=== PATIENT | male | born 1980 | race African-American/Black ===

== ENCOUNTER 2020-07-05 17:30 | Emergency (ER) | payer BC ==
[~2020-07-05] VITALS: Ht 172.7 cm; Wt 100.0 kg
[2020-07-05 17:45] VITALS: BP 127/83
--- NOTE | 2020-07-05 18:09 | PHYS DOC ---
Past History Past Medical History: No Pertinent History Past Surgical History: No Surgical History Alcohol Use: None General Adult EDM: Chief Complaint: HAND PROBLEM HPI: HPI: Patient is a 40-year-old male coming in for right hand pain and swelling, earlier punched a wall in his house because he was upset. No other injuries. States his tetanus is current within the last 5 years. Able to move hand denies paresthesias. Patient is right-handed. Review of Systems: Review of Systems: Constitutional: Denies fever or chills Eyes: Denies change in visual acuity HENT: Denies nasal congestion or sore throat Respiratory: Denies cough or shortness of breath Cardiovascular: Denies chest pain or edema GI: Denies abdominal pain, nausea, vomiting, bloody stools or diarrhea : Denies dysuria Musculoskeletal: Denies back pain or joint pain, right hand pain and swelling Integument: Denies rash, superficial abrasions over fourth and fifth knuckles Neurologic: Denies headache, focal weakness or sensory changes Endocrine: Denies polyuria or polydipsia Lymphatic: Denies swollen glands Psychiatric: Denies depression or anxiety Physical Exam: PE: Constitutional: Well developed, well nourished, no acute distress, non-toxic appearance. [] HENT: Normocephalic, atraumatic, bilateral external ears normal, oropharynx moist, no oral exudates, nose normal. [] Eyes: PERRLA, EOMI, conjunctiva normal, no discharge. [] Neck: Normal range of motion, no tenderness, supple, no stridor. [] Cardiovascular:Heart rate regular rhythm, no murmur [] Lungs & Thorax: Bilateral breath sounds clear to auscultation [] Abdomen: Bowel sounds normal, soft, no tenderness, no masses, no pulsatile masses. [] Skin: Warm, dry, no erythema, no rash. [] Superficial abrasions over 4-5 knuckles, no evidence of intrusion into joint space. Back: No tenderness, no CVA tenderness. [] Extremities: No tenderness, no cyanosis, no clubbing, ROM intact, mild edema over third through fifth knuckles and dorsal hand on right Neurologic: Alert and oriented X 3, normal motor function, normal sensory function, no focal deficits noted. [] Psychologic: Affect normal, judgement normal, mood normal. [] Current Patient Data: Vital Signs: Vital Signs Date Time Temp Pulse Resp B/P (MAP) Pulse Ox O2 Delivery O2 Flow Rate FiO2 07/05/20 17:45 98.4 76 16 127/83 (98) 98 Room Air EKG: EKG: [] Radiology/Procedures: Radiology/Procedures: Three-view right hand AP lateral oblique views HISTORY: Pain and swelling AP lateral oblique views Visualized osseous structures appear normal. IMPRESSION: No acute findings. [] Heart Score: Risk Factors: Risk Factors: DM, Current or recent (<one month) smoker, HTN, HLP, family history of CAD, obesity. Risk Scores: Score 0 - 3: 2.5% MACE over next 6 weeks - Discharge Home Score 4 - 6: 20.3% MACE over next 6 weeks - Admit for Clinical Observation Score 7 - 10: 72.7% MACE over next 6 weeks - Early Invasive Strategies Course & Med Decision Making: Course & Med Decision Making Left AMA from the emergency department prior to x-ray read, stating he did not have time to sign AMAvpapers. Patient stated he had been here for an hour and in 1 week anymore. [] Dragon Disclaimer: Dragon Disclaimer: This electronic medical record was generated, in whole or in part, using a voice recognition dictation system. Departure Departure: Impression: Primary Impression: Contusion of right hand, initial encounter Disposition: 07 AMA/ELOPED/LWBS Condition: STABLE Referrals: PCP,NO (PCP) Scripts No Active Prescriptions or Reported Meds KESHIA IBARRA MD Jul 05, 2020 18:09
--- NOTE | 2020-07-05 19:01 | RAD ---
Three-view right hand AP lateral oblique views HISTORY: Pain and swelling AP lateral oblique views Visualized osseous structures appear normal. IMPRESSION: No acute findings. Electronically signed by: Rafal Russ III, MD (07/05/2020 6:58 PM) [facility]
== END 2020-07-05 18:25 | disposition left against medical advice (07) ==
LOC: ER 17:30
DX: S60.221A Contusion of right hand, initial encounter (principal); W22.01XA Walked into wall, initial encounter; Y93.89 Activity, other specified; Y92.89 Other specified places as the place of occurrence of the external cause; Y99.8 Other external cause status
CPT/HCPCS: 73130; 99283

== ENCOUNTER 2021-07-15 05:51 | Emergency (ER) | payer BC, OTHER ==
[~2021-07-15] VITALS: Ht 172.7 cm; Wt 95.7 kg
--- NOTE | 2021-07-15 06:05 | PHYS DOC ---
Past History Past Medical History: No Pertinent History Past Surgical History: No Surgical History Alcohol Use: None Adult General Chief Complaint Chief Complaint: DYSPNEA/RESPIRATOY DISTRESS [facility] HPI Patient is a 41-year-old male presenting via POV for cough. Reports he has healthy and has been at baseline health but reports generalized sore throat and URI symptoms that developed 8 days ago. He was seen by his primary care physician 6 days ago where he was tested for strep and Covid for which she was positive for both. He was started on amoxicillin with supportive care instructions advised. The next day, he went to local health department to confirm he was Covid positive, he had repeat Covid test which was indeed positive with continued supportive care practices advised. Nonetheless, patient has been trying to take home Tylenol, Excedrin and elderberry without any improvement in symptoms. He has had poor p.o. intake due to ongoing fatigue. Generalized malaise and ongoing symptoms prompted him to come in for evaluation. Is otherwise healthy with no medical issues, takes no medications on a daily ba sis. No tobacco alcohol or drug use. He is not vaccinated against COVID-19 Review of Systems Review of Systems Fourteen body systems of review of systems have been reviewed. See HPI for pertinent positives and negative responses, other bright all other systems are negative, non-pertinent or non-contributory Allergies Allergies Allergies Coded Allergies Type Severity Reaction Last Updated Verified No Known Drug Allergies 07/05/20 No Physical Exam Physical Exam Constitutional: Well developed, well nourished, appears poorly but is in no acute distress, non-toxic appearance. HENT: Normocephalic, atraumatic, bilateral external ears normal, oropharynx dry with erythematous posterior oropharynx, no oral exudates, nose normal. Eyes: PERRLA, EOMI, conjunctiva normal, no discharge. Neck: Normal range of motion, no tenderness, supple, no stridor. Cardiovascular: Heart rate regular, sinus rhythm, no murmurs rubs or gallops Lungs & Thorax: Bilateral breath sounds clear to auscultation Abdomen: Bowel sounds normal, soft, no tenderness, no masses, no pulsatile masses. Nonsurgical abdomen, no peritoneal signs Skin: Warm, dry, no erythema, no rash. Back: No tenderness, no CVA tenderness. Extremities: No tenderness, no cyanosis, no clubbing, ROM intact, no edema. Neurologic: Alert and oriented X 3, grossly normal motor & sensory function, no focal deficits noted. Psychologic: Affect normal, judgement normal, mood normal. Current Patient Data Vital Signs Vital Signs Date Time Temp Pulse Resp B/P (MAP) Pulse Ox O2 Delivery O2 Flow Rate FiO2 07/15/21 06:00 98.9 107 22 129/75 (93) 95 Room Air Vital Signs Date Time Temp Pulse Resp B/P (MAP) Pulse Ox O2 Delivery O2 Flow Rate FiO2 07/15/21 06:00 98.9 107 22 129/75 (93) 95 Room Air Lab Results Laboratory Tests Test 07/15/21 06:20 White Blood Count 3.9 x10^3/uL Red Blood Count 5.39 x10^6/uL Hemoglobin 15.5 g/dL Hematocrit 45.3 % Mean Corpuscular Volume 84 fL Mean Corpuscular Hemoglobin 29 pg Mean Corpuscular Hemoglobin Concent 34 g/dL Red Cell Distribution Width 13.9 % Platelet Count 114 x10^3/uL Neutrophils (%) (Auto) 43 % Lymphocytes (%) (Auto) 51 % Monocytes (%) (Auto) 6 % Eosinophils (%) (Auto) 0 % Basophils (%) (Auto) 1 % Neutrophils # (Auto) 1.6 x10^3uL Lymphocytes # (Auto) 2.0 x10^3/uL Monocytes # (Auto) 0.2 x10^3/uL Eosinophils # (Auto) 0.0 x10^3/uL Basophils # (Auto) 0.0 x10^3/uL Sodium Level 138 mmol/L Potassium Level 3.8 mmol/L Chloride Level 102 mmol/L Carbon Dioxide Level 24 mmol/L Anion Gap 12 Blood Urea Nitrogen 11 mg/dL Creatinine 1.3 mg/dL Estimated GFR (Cockcroft-Gault) 74.4 Glucose Level 96 mg/dL Calcium Level 7.9 mg/dL Current Medications Medications (Trade) Dose Ordered Sig/Roderick Route PRN Reason Start Time Stop Time Status Last Admin Dose Admin Sodium Chloride 1,000 ml @ 1,000 mls/hr 1X ONCE IV 07/15/21 06:30 07/15/21 07:29 DC 07/15/21 06:30 EKG EKG [] Radiology/Procedures Radiology/Procedures EXAM: AP View of the chest DATE: 07/15/2021 6:18 AM INDICATION: Shortness of breath COMPARISON: No Prior FINDINGS: The heart is not enlarged. Mediastinal and hilar contours are normal. Patchy opacities medial right lung base likely atelectasis or developing consolidation. No pleural effusion or pneumothorax. IMPRESSION: Patchy opacities medial right lung base likely atelectasis or developing consolidation. Electronically signed by: Christian Sebastian MD (07/15/2021 7:51 AM) [id number] Heart Score C/O Chest Pain: No Risk Factors: Risk Factors: DM, Current or recent (<one month) smoker, HTN, HLP, family history of CAD, obesity. Risk Scores: Risk Factors: DM, Current or recent (<one month) smoker, HTN, HLP, family history of CAD, obesity. Course & Med Decision Making Course & Med Decision Making ABCs unremarkable HPI physical exam and comprehensive ER work-up nonconcerning for any emergent or surgical issues IV fluid rehydration administered. Patient already on antibiotics and advised to continue these. Joint decision made to start budesonide inhaler given patient is hemodynamically stable and nonhypoxic Patient to be discharged home with continued supportive care practices and close outpatient follow-up when safe to do so. Strict return precautions discussed and understood by patient. All questions and concerns addressed prior to ER departure Dragon Disclaimer Dragon Disclaimer This electronic medical record was generated, in whole or in part, using a voice recognition dictation system. Departure Departure: Impression: Primary Impression: COVID-19 Disposition: 01 HOME / SELF CARE / HOMELESS Condition: STABLE Referrals: ADI CORTEZ MD (PCP) Additional Instructions: As discussed prior to ER departure, your vitals, physical exam and comprehensive ER work-up were nonconcerning for any emergent or surgical issues. You are provided IV fluid rehydration as you have had decreased fluid intake due to acute infection with COVID-19. There is no indication for further diagnostic work-up, intervention or need for hospitalization at this time. Please continue providing supportive care practices to yourself at home with importance of sitting upright and practicing deep breathing exercises to ensure adequate oxygenation and ventilation to your lungs. Please keep close contact with your primary care physician during acute phase of illness to ensure continued resolution. If any concerning signs or symptoms present prior to safe outpatient follow-up please do not hesitate to come back for repeat evaluation. It was a pleasure to take care of you and I wish you the best going forward Scripts Budesonide (PULMICORT FLEXHALER) 180 Mcg [email or web address] 2 PUFF IH BID for shob, #1 INHALER 6 Refills Prov: ESTIVEN DIAZ DO 07/15/21 ESTIVEN DIAZ DO Jul 15, 2021 06:05
[2021-07-15] MEDS ORDERED: IV NORMAL SALINE 1,000ML 1,000 ML IV ONE (06:30)
[2021-07-15] MEDS ORDERED: AMOXICILL (06:32)
[2021-07-15 06:37] LABS: BASO % 1 % (0-3); EOS % 0 % (0-3); HEMATOCRIT 45.3 % (39.0-53.0); HEMOGLOBIN 15.5 g/dL (13.0-17.5); LYMPH % 51 % (24-48); MEAN CORPUSCULAR HEMOGLOBIN 29 pg (25-35); MEAN CORPUSCULAR HGB CONC 34 g/dL (31-37); MEAN CORPUSCULAR VOLUME 84 fL (79-100); MONO # 0.2 x10^3/uL (0.0-1.1); MONO % 6 % (0-9); NEUT # 1.6 x10^3uL (1.8-7.7); NEUT % 43 % (31-73); PLATELET COUNT 114 x10^3/uL (140-400); RED BLOOD COUNT 5.39 x10^6/uL (4.30-5.70); RED CELL DISTRIBUTION WIDTH 13.9 % (11.5-14.5); WHITE BLOOD COUNT 3.9 x10^3/uL (4.0-11.0)
[2021-07-15 06:44] LABS: CALCIUM 7.9 mg/dL (8.5-10.1); CREATININE 1.3 mg/dL (0.7-1.3); GFR 74.4; POTASSIUM 3.8 mmol/L (3.5-5.1)
[2021-07-15 07:30] VITALS: BP 125/77
[2021-07-15] MEDS ORDERED: BUDE180A IH (07:49)
--- NOTE | 2021-07-15 07:54 | RAD ---
EXAM: AP View of the chest DATE: 07/15/2021 6:18 AM INDICATION: Shortness of breath COMPARISON: No Prior FINDINGS: The heart is not enlarged. Mediastinal and hilar contours are normal. Patchy opacities medial right lung base likely atelectasis or developing consolidation. No pleural effusion or pneumothorax. IMPRESSION: Patchy opacities medial right lung base likely atelectasis or developing consolidation. Electronically signed by: Christian Sebastian MD (07/15/2021 7:51 AM) [id number]
== END 2021-07-15 07:55 | disposition home or self-care (01) ==
LOC: ER 05:51
DX: U07.1 COVID-19 (principal)
CPT/HCPCS: 36415; 71045; 80048; 85025; 96360; 99285; J7030